=== PATIENT | female | born 1935 | race Caucasian/White ===

== ENCOUNTER → 2019-02-02 09:19 | Outpatient (CLI) | payer MEDICARE, OTHER ==
[2014-09-14 11:58] VITALS: BMI 26.5
--- NOTE | ~2019-02-02 | EC ---
PATIENT:JESSICA ORTEGA DATE OF SERVICE: 02/02/19 SEX: F MEDICAL RECORD: [id number] DATE OF : 31 LOCATION:D[facility] AGE OF PATIENT: 83 ADMISSION DATE: 02/02/19 REFERRING PHYSICIAN: INTERPRETING PHYSICIAN: MELISSA DUNN MD ECHOCARDIOGRAM REPORT ECHO CHARGES 4 ECHO COMPLETE Date: 02/02/19 CLINICAL DIAGNOSIS: ATRIAL FIB ECHOCARDIOGRAPHIC MEASUREMENTS (adult normal given) AC root (d.<3.7cm) 3.3 cm LV Septum d (<1.2 cm> 1.3 cm Valve Excursion 1.1 cm LV Septum (systole) 1.6 cm Left Atria (s.<4.0cm> 4.4 cm LVPW d(<1.2cm) 1.4 cm RV (d.<2.3cm) 3.2 cm LVPW (sytole) 1.7 cm LV diastole(<5.6CM) 4.2 cm MV E-F(>70mm/sec) cm LV systole 2.7 cm LVOT Diameter 1.8 cm MV exc.(>10mm) 1.5 cm Est.ejection fraction (50-75%) % DOPPLER: LVIT cm/sec A 22.0 cm/sec E 107 cm/sec LA cm/sec RVSP 51 mmHg LVOT 76 cm/sec AOP1/2T m/s Asc. Ao 128 cm/sec RVOT 68 cm/sec RA cm/sec PA 83 cm/sec AV Gradient Peak 6.59 mmHg AV Mean 3.37 mmHg AV Area 1.6 cm MV Gradient Peak 5.92 mmHg MV Mean 1.47 mmHg MV Area cm COMMENTS: Telephony Engineer: Rosa SOLIS Patient Resource Specialist: 1 Dr. Dunn TAPE# PACS Pericardial Effusion N DATE OF SERVICE: 02/02/2019 PROCEDURE: Echocardiogram. FINDINGS: 1. Left ventricular chamber size is within normal limits. Left ventricular systolic function is normal. Overall ejection fraction estimated at 60%. 2. Left atrium is enlarged at 4.4 cm. Right atrium and right ventricular chamber sizes are moderately dilated. 3. Valvular structures have normal structure and motion. ECHOCARDIOGRAM REPORT [id number] JESSICA ORTEGA 4. Doppler interrogation reveals moderate mitral regurgitation, moderate tricuspid regurgitation, no other valvular insufficiency or stenosis. Pulmonary systolic pressure is mildly elevated, estimated at 51 mmHg. 5. No evidence of pericardial effusion or left ventricular thrombus. TRANSINT:[id number] Voice Confirmation ID: [id number] DOCUMENT ID: [id number] MELISSA DUNN MD CC: [id number] DICTATION DATE: 02/06/19 1027 CONTAINER SHOP WELDER: 02/06/19 1135 DEP CLI 02/02/19 [facility] [address] [id number]
[~2019-02-02 09:19] MED LIST: ALEVE220 MG PO; BAYER CHEWABLE81 MG PO; CALCIUM 600+D T1 TA1 PO; HYZAAR 100-12.51 TAB PO; NORVASC10 MG PO; OCUVITE TABLET1 TA1 PO; PRAVACHOL40 MG PO; RYTHMOL150 MG PO; VITAMIN D3; XARELTO20 MG PO
== END | disposition home or self-care (01) ==
LOC: D.HCCARDIO 09:19
PROVIDERS: ATTEND Internal Medicine Interventional Cardiology
DX: I48.91 Unspecified atrial fibrillation (principal)

== ENCOUNTER 2020-04-03 10:30 | Inpatient (IN) | payer MEDICARE, OTHER ==
[~2020-04-03] VITALS: Ht 154.9 cm; Wt 67.7 kg
[~2020-04-03 10:30] MED LIST changes: +XARELTO15 MG PO; -XARELTO20 MG PO
[2020-04-03] MEDS ORDERED: SYNTHROID25 MCG PO (10:53)
[2020-04-03] MEDS ORDERED: XALATAN 0.0052.5 ML EACH EYE (10:53)
[2020-04-03 11:11] VITALS: BP 141/71; BMI 28.2
[2020-04-03 11:18] VITALS: BP 141/71
[2020-04-03 11:19] LABS: BASOPHILS 0.2 % (0-2); EOSINOPHILS 0 % (0-7); HEMATOCRIT 40.4 % (36.0-48.0); HEMOGLOBIN 13.2 g/dL (12-16); IMMATURE GRANULOCYTES 0.3 % (0-5); LYMPHOCYTES 5.5 % (15-50); MCH 28.9 pg (26.0-34.0); MCHC 32.7 g/dL (31.0-37.0); MCV 88.4 fL (80.0-100.0); MEAN PLATELET VOLUME 9.4 fL (7.4-10.4); MONOCYTES 7.3 % (2-11); NEUTROPHILS 86.7 % (40-80); PLATELET COUNT 221 10x3/uL (130-400); RBC 4.57 10x6/uL (4.00-5.40); WBC 13.3 10x3/uL (4.8-10.8)
[2020-04-03 11:21] LABS: CALC OSMOLALITY 259 mosm/kg (275-300); CALCIUM 9.7 mg/dL (8.5-10.1); CARBON DIOXIDE 30.8 mmol/L (21.0-32.0); CHLORIDE - SERUM 92 mmol/L (98-107); GLUCOSE 116 mg/dL (74-106); POTASSIUM - SERUM 4.2 mmol/L (3.5-5.1); SODIUM 128 mmol/L (136-145); UREA NITROGEN 17 mg/dL (7-18); eGFR NON AFRICAN AMERICAN 56 mL/min (90-120)
[2020-04-03 11:39] LABS: CKMB 4.5 U/L (0.0-3.6); CREATINE KINASE 119 UL (21-215); THYROID STIMULATING HORMONE 4.81 uIU/mL (0.36-3.74); TROPONIN-I < 0.017 ng/mL (0.000-0.060)
[2020-04-03 13:31] LABS: BACTERIA FEW /hpf (NEGATIVE); BILIRUBIN NEGATIVE (NEGATIVE); EPITHELIAL CELLS 0-5 /hpf (0-5); GLUCOSE NEGATIVE (NEGATIVE); KETONE MODERATE mg/dL (NEGATIVE); NITRITE NEGATIVE (NEGATIVE); UROBILINOGEN NORMAL (NORMAL); WHITE CELLS - URINE 0-5 /hpf (NEGATIVE)
--- NOTE | 2020-04-03 14:27 | NUR ---
DR. GILLESPIE IS TAKING 02 TANK BACK TO OFFICE. IV STARTED TO RIGHT AC WITH 20 GAUGE CATH X 1 STICK AND FLUSHED WITH NS. LINE IS PATENT.
[2020-04-03 14:59] VITALS: Ht 154.9 cm; Wt 67.7 kg
[2020-04-03 15:39] VITALS: BP 154/85
--- NOTE | 2020-04-03 15:58 | NUR ---
EKG COMPLETED SHOWIN AFIB 108. WILL MONITOR.
--- NOTE | 2020-04-03 17:02 | NUR ---
LEAVING FOR CTA BY W/C.
--- NOTE | 2020-04-03 17:07 | HP ---
PATIENT: JESSICA ORTEGA MEDICAL RECORD: [id number] ACCOUNT: [id number] LOCATION:[address] : [birth year] ADMISSION DATE: 04/03/20 PCP: HILLARY MARTINEZ MD HISTORY AND PHYSICAL EXAMINATION REASON FOR ADMISSION: Shortness of breath and low heart rate. HISTORY OF PRESENT ILLNESS: The patient is an 84-year-old female who is followed by Dr. Dunn for chronic atrial fib. She has felt pretty well until approximately a week ago. She tripped in her garage, falling forward on her chest. She had no head injury, chest injury, or loss of consciousness, just banged her knees. She said she felt little bit more short of breath since that time. She came to my office 2 days ago and had a heart rate in the mid 40s with junctional rhythm on EKG. Her oxygen saturation was 94% at that time on room air. She was not tachypneic and her chest x-ray did not show fracture or pneumothorax. She thought she might be having symptomatic bradycardia. Her beta-beck was held. She was scheduled for an echocardiogram for tomorrow, but came in with more shortness of breath yesterday. She denies cough or chest wall pain, but very distinct when she walks. She has had no leg edema. She has no family history of clotting abnormalities. She is now admitted directly to the hospital for dyspnea, bradycardia and chronic atrial fib. PAST MEDICAL HISTORY: Chronic atrial fibrillation since 2009, controlled on medications, hyperlipidemia, hypertension, degenerative joint disease of the cervical spine, hypothyroidism, glaucoma, right retinal vein occlusion. PAST SURGICAL HISTORY: times 3. FAMILY HISTORY: Parents are , had hypertension. ALLERGIES: ALTACE AND LISINOPRIL CAUSING COUGH. SOCIAL HISTORY: Nonsmoker, nondrinker lifelong. Lives independently with family help. HOME MEDICATIONS: Amlodipine 5 mg daily, levothyroxine 25 mcg p.o. every morning and before meals, Propafenone 150 mg p.o. every 12 hours, pravastatin 40 mg at bedtime, Xalatan eye drops 0.005% one drop both eyes bedtime, Xarelto 15 mg daily. REVIEW OF SYSTEMS: CONSTITUTIONAL: Has been fatigued since her fall. No fever. HEENT: No recent new visual change, sinus congestion, or sore throat. RESPIRATORY: Exertional shortness of breath for the last week. Denied cough or hemoptysis. She states that she had trouble breathing last night, so she sat up to breathe. CARDIAC: No exertional chest pain, claudication, or edema, plus WHITE. GASTROINTESTINAL: No nausea, vomiting, change in stools, blood per rectum. GENITOURINARY: No incontinence. GYNECOLOGIC: No vaginal bleeding. MUSCULOSKELETAL: There is chronic cervical arthralgias. No radiculopathy. INTEGUMENT: No bruises or rash. PSYCHIATRIC: Denies depressed mood. ENDOCRINE: Denies polyuria, polydipsia, heat or cold intolerance. HISTORY AND PHYSICAL [id number] JESSICA ORTEGA PHYSICAL EXAMINATION: GENERAL: Alert 84-year-old female who is mildly dyspneic. Her height is 5 feet 1 inches, weighs 149 pounds. VITAL SIGNS: Temperature is 98.4, pulse is 48 and regular, respirations are 20, blood pressure is 141/71, O2 sat in the office was 88% walking, 90% on room air, O2 sat on 2 liters is 94-97%, blood pressure 141/71. The patient is alert and oriented, mildly dyspneic. HEENT: Her eyes are clear. Oropharynx unremarkable. NECK: Not supple with limited flexion, which is chronic. No carotid bruits or JVD are noted. CHEST: Fine crackles in the left base. No wheeze or rales. She is not retracting. No subQ crepitus noted. HEART: Irregular rate without gallop. ABDOMEN: Soft, nontender. EXTREMITIES: She has bruising over both knees from her fall. No peripheral edema appreciated. NEUROLOGIC: Oriented to person, place, and time. Cranial nerves intact. Gait is normal. LABORATORY AND DIAGNOSTIC DATA: She has white count of 13,000, H&H of 13 and 40 respectively with this left shift. BMP shows sodium of 128, chloride of 92, CO2 of 30.8. GFR 56, glucose nonfasting of 116, osmolality is 259, which is low. Cardiac enzymes, CPK-MB is elevated at 4.5 probably from muscle injury from fall. Troponin is normal, less than 0.017. TSH is 4.81. T4 is 1.80. Urinalysis is pending. EKG showed junctional rhythm in the office with a rate of 50. Chest x-ray previously was unremarkable except for cardiomegaly. ASSESSMENT: 1. Dyspnea with acute onset and hypoxemia, etiology unknown. 2. Bradycardia with history of chronic atrial fibrillation, possible sick sinus syndrome. 3. Hypertension. 4. Hyponatremia. 5. Hypothyroidism. 6. Glaucoma. PLAN: The patient will be admitted for cardiac monitoring, echocardiogram, CTA to rule out occult pulmonary embolus post-fall, cardiology consult. Further workup pending clinical course. TRANSINT:[id number] Voice Confirmation ID: [id number] DOCUMENT ID: [id number] HILLARY MARTINEZ MD at 1707 CC: [id number] DICTATION DATE: 04/03/20 1245 CRANE RIGGER: 04/03/20 1341 ADM IN [facility] [address] [id number]
--- NOTE | 2020-04-03 19:20 | NUR ---
REPORT RECEIVED, WILL CONTINUE POC. PATIENT IS AAOX4, LYING ON LEFT SIDE. NO S/S OF DISTRESS OBSERVED, RR EVEN AND UNLABORED ON 2L O2 VIA NC. PATIENT REQUESTING CUP OF WATER WITH NO ICE. EDUCATED PATIENT ON 1200ML FLUID RESTRICTION. PATIENT EXPRESSES UNDERSTANDING. PATIENT DENIES FURTHER NEEDS AT THIS TIME. CL IN REACH, BED LOCKED AND LOWERED. VISITOR AT BEDSIDE. WILL CTM.
[2020-04-03 20:00] VITALS: BP 165/85
[2020-04-04] VITALS: BP 129/64
[2020-04-04 04:00] VITALS: BP 127/63
[2020-04-04 06:54] LABS: ANION GAP 10.1 mmol/L (8-16); CALCIUM 8.3 mg/dL (8.5-10.1); CARBON DIOXIDE 28.2 mmol/L (21.0-32.0); CREATININE - SERUM 0.9 mg/dL (0.6-1.3)
[2020-04-04 06:55] LABS: POTASSIUM - SERUM 3.3 mmol/L (3.5-5.1)
--- NOTE | 2020-04-04 09:35 | NUR ---
LEAVING FOR STRESS TEST BY W/C.
--- NOTE | 2020-04-04 10:20 | NUR ---
BACK FROM STRESS TEST. DIET RESUMED.
[2020-04-04 10:27] VITALS: BP 153/78
--- NOTE | 2020-04-04 12:30 | NUR ---
LEAVING FOR 2ND HALF STRESS TEST. WILL CONT. PLAN OF CARE.
[2020-04-04 14:00] VITALS: BP 128/69
[2020-04-04 17:24] VITALS: BP 107/66
--- NOTE | 2020-04-04 19:33 | NUR ---
PATIENT IS ALERT AND ORIENTED, RESTING COMFORTABLY IN BED. RESPIRATIONS ARE EVEN AND UNLABORED. NO S/S OF DISTRESS. NO C/O PAIN. CALL LIGHT WITHIN REACH. WILL CPOC.
[2020-04-04 20:00] VITALS: BP 135/63
[2020-04-05 00:38] VITALS: BP 128/82
--- NOTE | 2020-04-05 03:43 | NUR ---
I have reviewed this patient and I concur with the Shift Assessment completed by the Licensed Practical Nurse today this shift.
[2020-04-05 04:00] VITALS: BP 149/96
--- NOTE | 2020-04-05 07:15 | NUR ---
RECEIVED PT IN BED AAOX4 RESP UNLABORED DENIES ANY NEEDS OR DISCOMFORT NAD NOTED
[2020-04-05 07:57] VITALS: BP 154/82
[2020-04-05 09:24] LABS: CALCIUM 8.7 mg/dL (8.5-10.1); CARBON DIOXIDE 27.8 mmol/L (21.0-32.0); CREATININE - SERUM 1.1 mg/dL (0.6-1.3); POTASSIUM - SERUM 3.8 mmol/L (3.5-5.1)
[2020-04-05 11:21] VITALS: BP 129/68
[2020-04-05 11:49] LABS: PROTEIN - BODY FLUID 3.6 G/DL
[2020-04-05] MEDS ORDERED: LOPRESSOR25 MG PO (12:45)
--- NOTE | 2020-04-05 15:10 | NUR ---
REVIEWED DISCHARGE INSTRUCTIONS WITH PT AND DAUGHTER BOTH STATE UNDERSTANDING COPY GIVEN DCD SALINE LOCK TO LFA WITH IV CATHETER INTACT SITE FREE OF REDNESS OR EDEMA PT DISCHARGED IN STABLE CONDITION WITH ALL PERSONAL BELONGINGS LEFT UNIT VIA W/C
--- NOTE | 2020-04-05 17:05 | MORECARE ---
CASE MANAGEMENT DISCHARGE SUMMARY PATIENT: JESSICA ORTEGA UNIT: [id number] ADM DATE: 04/03/20 AGE: 84 : [birth year] SEX: F ROOM/BED: D.5694 AUTHOR: SUDHEER,DOC PHYSICIAN: REFERRING PHYSICIAN: HILLARY LÓPEZ MD DATE OF SERVICE: 04/05/20 Discharge Plan Patient Name: JESSICA ORTEGA Facility: [facility]:[place] : 1935 Planned Disposition: Home Anticipated Discharge Date: 04/05/20 Discharge Date: 04/05/2020 Expected LOS: 2 Initial Reviewer: [email or web address] Initial Review Date: 04/05/2020 Generated: 04/05/20 6:04 pm Comments DCP- Discharge Planning Updated by [email or web address]: Nisreen Carroll on 04/05/20 3:[address] Patient Name: JESSICA ORTEGA Admission Status: Elective Accout number: [id number] Admission Date: 04-03-2020 : 1935 Admission Diagnosis:BRADYCARDIA, UNSPECIFIED Attending: HILLARY LÓPEZ Current LOS: 2 Anticipated DC Date: 04-05-2020 Planned Disposition: Home Primary Insurance: MEDICARE A & B Discharge Planning Comments: CM met with patient to complete initial dc planning assessment. CM educated patient on the CM role and verbal consent given by patient to complete assessment. Patient lives at home alone. States her daughter lives close by. At discharge patient plans to return and feels this is a safe discharge. CM discussed availability of home health, rehab services, and medical equipment. Patient denied known discharge needs at this time. CM will continue to follow and will assist as needed with dc plans/needs. Medical Assisting Program Director: Nisreen Carroll DCPIA - Discharge Planning Initial Assessment Updated by [email or web address]: Nisreen Carroll on 04/05/20 4:53 pm * Is the patient Alert and Oriented? Yes * How many steps to enter\exit or inside your home? 0/0 * PCP Dr. López * Pharmacy [facility] on [address] * Preadmission Environment Home Alone * ADLs Independent * Equipment Cane Walker * List name and contact numbers for known caregivers / representatives who currently or will assist patient after discharge: Galo Martin - son - [phone] Mavis peterson - [phone] * Verbal permission to speak to the caregivers and representatives has been obtained from the patient. Yes * Community resources currently utilized None * Additional services required to return to the preadmission environment? No * Can the patient safely return to the preadmission environment? Yes * Has this patient been hospitalized within the prior 30 days at any hospital? No Patient Name: JESSICA ORTEGA Page [id number] at 1705 All edits/amendments must be made on the electronic document DICTATION DATE: 04/05/201703 SPANISH LINGUIST: PAT 04/05/201703 RPT#: [id number] DC DATE:04/05/20 STATUS: DIS IN [facility] [address] [place] [address] END OF REPORT
== END 2020-04-05 15:10 | disposition home or self-care (01) | DRG 292 ==
LOC: OBSVTIME 10:30 → D.M2 10:30 → D.SDCHOLD 14:48 → D.M2 14:53 → D.SDCHOLD 04-05 14:23 → D.M2 04-05 14:25
PROVIDERS: Internal Medicine Pulmonary Disease; ADMIT Family Medicine; ATTEND Family Medicine
PROC: 0W993ZZ Drainage of Right Pleural Cavity, Percutaneous Approach (ICD-10-PCS; principal; 2020-04-05)
DX: I11.0 Hypertensive heart disease with heart failure (principal); E87.1 Hypo-osmolality and hyponatremia; J98.11 Atelectasis; J90 Pleural effusion, not elsewhere classified; I48.20 Chronic atrial fibrillation, unspecified; R00.1 Bradycardia, unspecified; I50.30 Unspecified diastolic (congestive) heart failure; E03.9 Hypothyroidism, unspecified; I25.10 Atherosclerotic heart disease of native coronary artery without angina pectoris; R91.1 Solitary pulmonary nodule

== ENCOUNTER → 2021-02-15 08:53 | Outpatient (CLI) | payer MEDICARE, OTHER ==
[2020-04-03 14:59] VITALS: BMI 28.2
[~2021-02-15 08:53] MED LIST changes: +LOPRESSOR25 MG PO; +SYNTHROID25 MCG PO; +XALATAN 0.0052.5 ML EACH EYE
== END | disposition home or self-care (01) ==
LOC: D.LABREF 08:53
PROVIDERS: ATTEND Internal Medicine Pulmonary Disease
DX: Z11.52 Encounter for screening for COVID-19 (principal)

== ENCOUNTER → 2021-02-20 07:39 | Outpatient (CLI) | payer MEDICARE, OTHER ==
[2020-04-03 14:59] VITALS: BMI 28.2
== END | disposition home or self-care (01) ==
LOC: D.RT 07:39
PROVIDERS: ATTEND Internal Medicine Pulmonary Disease
DX: R06.09 Other forms of dyspnea (principal)